=== PATIENT | female | born 1940 | race Caucasian/White ===

== ENCOUNTER → 2017-01-10 | Outpatient (CLI) | payer BC, OTHER | LOC: BMCIMAGING 11:08 | PROVIDERS: ATTEND Nurse Practitioner Adult Health | DX: M25.512 Pain in left shoulder (principal) ==

== ENCOUNTER → 2017-10-13 | Outpatient (CLI) | payer BC | LOC: FIMAGING 16:15 | PROVIDERS: ATTEND Surgery | DX: R60.0 Localized edema (principal) ==

== ENCOUNTER → 2018-03-28 | Outpatient (CLI) | payer BC | LOC: FIMAGING 08:27 | PROVIDERS: ATTEND Nurse Practitioner Adult Health | DX: Z12.31 Encounter for screening mammogram for malignant neoplasm of breast (principal); M81.0 Age-related osteoporosis without current pathological fracture; M85.89 Other specified disorders of bone density and structure, multiple sites; E28.39 Other primary ovarian failure; E07.9 Disorder of thyroid, unspecified; Z78.0 Asymptomatic menopausal state ==

== ENCOUNTER → 2018-04-26 | Outpatient (CLI) | payer BC | LOC: BMCIMAGING 14:07 | PROVIDERS: ATTEND Nurse Practitioner Adult Health | DX: M47.896 Other spondylosis, lumbar region (principal) ==

== ENCOUNTER → 2018-05-01 | Outpatient (CLI) | payer BC | LOC: FIMAGING 08:07 | PROVIDERS: ATTEND Nurse Practitioner Adult Health | DX: S32.19XA Other fracture of sacrum, initial encounter for closed fracture (principal); M48.061 Spinal stenosis, lumbar region without neurogenic claudication; M51.86 Other intervertebral disc disorders, lumbar region ==

== ENCOUNTER → 2018-05-04 | Outpatient (CLI) | payer BC | LOC: BMCIMAGING 07:49 | PROVIDERS: ATTEND Nurse Practitioner Adult Health | DX: K76.89 Other specified diseases of liver (principal) ==